=== PATIENT | male | born 1955 | race Caucasian/White ===

== ENCOUNTER 2016-08-14 02:05 | Emergency (ER) | payer OTHER ==
[~2016-08-14] VITALS: Ht 162.6 cm; Wt 68.2 kg
[2016-08-14 02:08] VITALS: Ht 162.6 cm; Wt 68.2 kg
[2016-08-14] MEDS ORDERED: SULF1TAB31 PO (02:37)
[2016-08-14] MEDS ORDERED: IBUP400T22 PO (02:37)
[2016-08-14] MEDS ORDERED: CEPH-443 PO (02:37)
[2016-08-14] MEDS ORDERED: METF500T4 PO (02:50)
[2016-08-14] MEDS ORDERED: LANT3I SC (02:50)
--- NOTE | 2016-08-14 02:55 | ERD ---
ER Documentation Chief Complaint Date/Time DATE: 08/14/16 TIME: 02:49 Chief Complaint PIMPLE TO LT EYEBROW WITH SWELLING TO LEFT EYE HPI 61-year-old presents to emergency department for complaints of a pimple looking bump on the left eyebrow. Patient states that it started as a small pimple, it got bigger. Patient described the pain as sharp pain, 6/10 scale, is worse upon touching the area. Patient is diabetic. Patient has any fever or chills. Patient denies any rash or vomiting other parts of the body. Patient did not take any medications to help with symptoms. ROS All systems reviewed and are negative except as per history of present illness. Medications Home Meds Active Scripts Ibuprofen* (Motrin*) 400 Mg Tab, 400 MG PO Q6H Y for PAIN AND OR ELEVATED TEMP, #30 TAB Prov:SHANDRA BUENO COUNTER INTELLIGENCE TECHNICIAN 08/14/16 Cephalexin* (Keflex*) 500 Mg Capsule, 500 MG PO QID, #39 CAP Prov:SHANDRA BUENO COUNTER INTELLIGENCE TECHNICIAN 08/14/16 Sulfamethoxazole/Trimethoprim* (Bactrim Ds* Tablet) 1 Each Tablet, 1 TAB PO BID , #19 TAB Prov:SHANDRA BUENO COUNTER INTELLIGENCE TECHNICIAN 08/14/16 Reported Medications Insulin Glargine* (Lantus*) Unknown Strength Soln, SC BID, #1 VIAL 08/14/16 Metformin* (Glucophage*) Unknown Strength Tab, PO BID, #20 TAB 08/14/16 Allergies Allergies: Coded Allergies: No Known Allergy (Unverified , 08/14/16) PMhx/Soc History of Surgery: Yes (RIGHT LEG SX DUE TO CELLULITIS) Hx Miscellaneous Medical Probl: Yes (DM) Hx Alcohol Use: No Hx Substance Use: No Hx Tobacco Use: No Smoking Status: Never smoker FmHx Family History: No coronary disease, No diabetes, No other Physical Exam Vitals Vital Signs Date Time Temp Pulse Resp B/P Pulse Ox O2 Delivery O2 Flow Rate FiO2 08/14/16 02:08 96.1 94 20 175/87 98 Physical Exam GENERAL: The patient is well developed and appropriate for usual state of health, in no apparent distress. CHEST: Clear to auscultation bilaterally. There are no rales, wheezes or rhonchi. HEART: Regular rate and rhythm. No murmurs, clicks, rubs or gallops. No S3 or S4. ABDOMEN: Soft, nontender and nondistended. Good bowel sounds. No rebound or guarding. No gross peritonitis. No gross organomegaly or masses. No Larry sign or McBurney point tenderness. BACK: No midline or flank tenderness. EXTREMITIES: Equal pulses bilaterally. There is no peripheral clubbing, cyanosis or edema. No focal swelling or erythema. Full range of motion. Grossly neurovascularly intact. NEURO: Alert and oriented. Cranial nerves 2-12 intact. Motor strength in all 4 extremities with 5/5 strength. Sensation grossly intact. Normal speech and gait. SKIN: There is 0.2 cm induration on the left eyebrow, with mild fluctuance noted, tender on palpation. There is no apparent ecchymosis or petechia. The skin is warm and dry. HEMATOLOGIC AND LYMPHATIC: There is no evidence of excessive bruising or lymphedema. No gross cervical, axillary, or inguinal lymphadenopathy. Results 24 hrs Current Medications Medications (Trade) Dose Ordered Sig/Karine Route PRN Reason Start Time Stop Time Status Last Admin Dose Admin Cephalexin (Keflex) 500 mg ONCE ONCE PO 08/14/16 03:00 08/14/16 03:01 08/14/16 02:45 Trimethoprim/ Sulfamethoxazole (Bactrim (Ds)) 1 tab ONCE ONCE PO 08/14/16 03:00 08/14/16 03:01 08/14/16 02:45 Bactrim and Keflex first dose was given here in emergency department, tolerated medication well. Procedures/MDM Procedure Note: After obtaining informed consent, the wound was cleaned with diluted betadine. Using aseptic technique, a puncture was done on the fluctuant aspect of the left eyebrow area. Pustular discharge was drained from the pimple. After the procedure, dry dressing was applied on the area. Patient tolerated procedure well. Medical decision-making: Patient's symptoms of pain is consistent with folliculitis.It was drained without any difficulty. Patient tolerated procedure well. No symptoms of sepsis at this time. Patient appears well and is hemodynamically fever. Prescription was given for Bactrim, Keflex, ibuprofen, is advised to apply warm compresses on affected area, wound care, wound check in 2 days. Patient is advised follow-up to emergency department for worsening symptoms. Departure Diagnosis: Primary Impression: Folliculitis Condition: Stable Patient Instructions: Folliculitis SHANDRA BUENO NP August 14, 2016 02:55
[2016-08-14] MEDS ORDERED: TRIMETHOPRIM/SULFAMETHOX (DS) TAB PO ONE (03:00)
[2016-08-14] MEDS ORDERED: CEPHALEXIN 500 MG CAP PO ONE (03:00)
== END 2016-08-14 02:51 | disposition home or self-care (01) ==
LOC: FTE 02:05
DX: L73.9 Follicular disorder, unspecified (principal); E11.9 Type 2 diabetes mellitus without complications; Z79.84 Long term (current) use of oral hypoglycemic drugs; Z79.4 Long term (current) use of insulin
CPT/HCPCS: Z7502; Z7610; 99284

== ENCOUNTER 2017-09-25 10:43 | Day surgery (SDC) | END 2017-09-25 17:30 | disposition home or self-care (01) ==